=== PATIENT | female | born 1970 ===

== ENCOUNTER 2018-09-28 09:37 | Emergency (ER) | payer SELFPAY ==
[2018-09-28 09:41] VITALS: RESP 18
--- NOTE | 2018-09-28 10:24 | C.PDOC ---
History Of Present Illness 48 y/o female pt presents to the ER complaining of left-sided abdominal pain and vaginal spotting. Pt reports of a subjective fever x4 days ago. Pt denies chills, nausea and vomiting. Time Seen by Provider: 09/28/18 10:04 Chief Complaint (Nursing): Abdominal Pain History Per: Patient History/Exam Limitations: no limitations Onset/Duration Of Symptoms: Days (x4) Current Symptoms Are (Timing): Still Present Location Of Pain/Discomfort: LLQ Exacerbating Factors: None Recent travel outside of the [place]: No Abnormal Vaginal Bleeding: Yes Past Medical History Reviewed: Historical Data, Nursing Documentation, Vital Signs Vital Signs: Last Vital Signs Temp 98.3 F 09/28/18 09:40 Pulse 74 09/28/18 09:40 Resp 18 09/28/18 09:40 BP 126/79 09/28/18 09:40 Pulse Ox 100 09/28/18 09:40 Surgical History: No Surg Hx, (1) Family History: States: Unknown Family Hx - Social History Hx Alcohol Use: No Hx Substance Use: No Review Of Systems Except As Marked, All Systems Reviewed And Found Negative. Constitutional: Positive for: Fever (subjective). Negative for: Chills Gastrointestinal: Positive for: Abdominal Pain (left-sided). Negative for: Nausea, Vomiting Physical Exam - Physical Exam Appears: Non-toxic, No Acute Distress Skin: Normal Color, Warm, Dry Head: Normacephalic Eye(s): bilateral: Normal Inspection, EOMI Nose: Normal Oral Mucosa: Moist Throat: Normal Neck: Normal ROM, Supple Chest: Symmetrical, No Deformity Cardiovascular: Rhythm Regular Respiratory: Normal Breath Sounds Gastrointestinal/Abdominal: Soft, Tenderness (LLQ), No Distention, No Guarding, No Rebound Back: No CVA Tenderness Extremity: Normal ROM (x4) Neurological/Psych: Oriented x3, Normal Speech, Normal Cognition Gait: Steady ED Course And Treatment - Laboratory Results Result Diagrams: 09/28/18 10:29 09/28/18 10:29 Lab Interpretation: Normal Urine POC: Negative O2 Sat by Pulse Oximetry: 100 (RA) Pulse Ox Interpretation: Normal - CT Scan/US No standard instances Other Rad Studies (CT/US): Read By Radiologist, Radiology Report Reviewed CT/US Interpretation: FINDINGS: UTERUS: Measures 10.0 x 5.4 x 6.0 cm. Anteverted. Heterogeneous uterine masses appear consistent with fibroids: 1.8 x 1.8 x 1.8 cm anterior mid uterus and 1.5 x 1.1 x 1.7 cm anterior lower uterine segment. ENDOMETRIUM: Measures 9 mm in diameter. CERVIX: No cervical abnormality identified. RIGHT OVARY: Measures 2.5 x 1.8 x 2.0 cm. Blood flow is demonstrated. LEFT OVARY: Measures 2.4 x 1.3 x 1.9 cm. Blood flow is demonstrated. FREE FLUID: No significant free fluid noted. OTHER FINDINGS: None. IMPRESSION: Probable uterine fibroids as above. Progress Note: re-evaluation abdomen soft non-tender. in no distress Reassessment Condition: Improved Medical Decision Making Medical Decision Making: Impression: LLQ abdominal pain with vaginal spotting plans: -- chem labs -- blood work -- UA -- HCG -- Transvaginal US Disposition Counseled Patient/Family Regarding: Studies Performed, Diagnosis, Need For Followup - Disposition Referrals: [facility] [Outside] [facility] [employer] [facility] [Outside] Disposition: HOME/ ROUTINE Disposition Time: 12:40 Condition: STABLE Instructions: Acute Pelvic Pain (DC) Forms: [employer] (Hungarian) Print Language: TURKISH - POA Present On Arrival: None - Clinical Impression Clinical Impression: Abdominal pain, Fibroid uterus - PA / [employer]ER / Resident Statement MD/ has reviewed & agrees with the documentation as recorded. - Scribe Statement The provider has reviewed the documentation as recorded by the Radha Mendoza Do All medical record entries made by the Scribe were at my direction and personally dictated by me. I have reviewed the chart and agree that the record accurately reflects my personal performance of the history, physical exam, medical decision making, and the department course for this patient. I have also personally directed, reviewed, and agree with the discharge instructions and disposition.
[2018-09-28 10:33] LABS: HCG,QUALITATIVE URINE NEGATIVE (NEGATIVE)
[2018-09-28 10:38] LABS: SQUAMOUS EPITHIAL 1 /hpf (0-5); URINE BILIRUBIN NEGATIVE (NEGATIVE); URINE BLOOD NEGATIVE (NEGATIVE); URINE CLARITY Clear (Clear); URINE COLOR Yellow (YELLOW); URINE GLUCOSE (UA) NORMAL (Normal); URINE LEUKOCYTE ESTERASE NEG Leu/uL (Negative); URINE PROTEIN NEGATIVE (NEGATIVE); URINE UROBILINOGEN NORMAL mg/dL (0.2-1.0)
[2018-09-28 10:44] LABS: BASO % 0.4 % (0.0-2.0); EOS # 0.1 K/uL (0.0-0.7); EOS % 1.3 % (0.0-4.0); HEMOGLOBIN 13.2 g/dL (11.0-16.0); LYMPH # 1.7 K/uL (1.0-4.3); LYMPH % 30.5 % (20.0-40.0); MEAN CELL VOLUME 83.4 fL (81.0-99.0); MEAN CORPUSCULAR HEMOGLOBIN 28.4 pg (27.0-31.0); MEAN CORPUSCULAR HGB CONC 34.1 g/dL (33.0-37.0); MEAN PLATELET VOLUME 9.1 fL (7.2-11.7); MONO # 0.5 K/uL (0.0-0.8); MONO % 9.8 % (0.0-10.0); NEUT # 3.2 K/uL (1.8-7.0); NRBC % 0.1 % (0.0-2.0); RBC 4.66 Mil/uL (3.80-5.20); RED CELL DISTRIBUTION WIDTH 13.3 % (11.5-14.5); WHITE BLOOD COUNT 5.4 K/uL (4.8-10.8)
[2018-09-28 10:48] LABS: ALB/GLOB RATIO 1.2 (1.0-2.1); ALBUMIN 3.9 g/dL (3.5-5.0); ALT/SGPT 21 U/L (9-52); AST/SGOT 18 U/L (14-36); BLOOD UREA NITROGEN 13 mg/dL (7-17); CALCIUM 8.5 mg/dl (8.6-10.4); GFR NON-AFRICAN AMERICAN > 60
--- NOTE | 2018-09-28 12:27 | US ---
Date of service: 09/28/2018 HISTORY: vaginal bleeding COMPARISON: None available. TECHNIQUE: Real-time transabdominal pelvic ultrasound was performed. In addition a transvaginal pelvic ultrasound was necessary to better depict pelvic anatomy. FINDINGS: UTERUS: Measures 10.0 x 5.4 x 6.0 cm. Anteverted. Heterogeneous uterine masses appear consistent with fibroids: 1.8 x 1.8 x 1.8 cm anterior mid uterus and 1.5 x 1.1 x 1.7 cm anterior lower uterine segment. ENDOMETRIUM: Measures 9 mm in diameter. CERVIX: No cervical abnormality identified. RIGHT OVARY: Measures 2.5 x 1.8 x 2.0 cm. Blood flow is demonstrated. LEFT OVARY: Measures 2.4 x 1.3 x 1.9 cm. Blood flow is demonstrated. FREE FLUID: No significant free fluid noted. OTHER FINDINGS: None. IMPRESSION: Probable uterine fibroids as above.
[2018-09-28 12:37] VITALS: O2SAT 100
[2018-09-28 12:49] VITALS: BP 135/84; PULSE 84; TEMP 98.4
== END 2018-09-28 12:49 | disposition home or self-care (01) ==
LOC: C.ER 09:37
DX: D25.9 Leiomyoma of uterus, unspecified (principal); R10.32 Left lower quadrant pain